=== PATIENT | female | born 1955 | race Caucasian/White ===

== ENCOUNTER → 2017-02-16 | Day surgery (SDC) | payer OTHER ==
[~2017-02-16] MED LIST: BENICAR HCT 40-1 TA2 PO; CORDARONE200 M1 PO; COUMADIN4 MG; DILTIAZEM ER240 M2 PO; LISINOPRIL20 MG PO; MELATONIN3 MG PO; MULTIVITAMINS1 EAC3 PO; WARFARIN SODIUM2 MG PO
--- NOTE | ~2017-02-16 | OR ---
Unit #: [id number] #: [id number] Patient: FLIP RINALDI [id number] [address] [address] [id number] O MR#: [id number] NAME: FLIP RINALDI ROOM: Date of Procedure: 02/16/2017 Admission Date: 02/16/2017 Surgeon: Po Garcia III, M.D. : 1955 Attending Physician: Po Garcia III, M.D. Referring Physician: Po Garcia III, M.D. Primary Care Physician: Barry Wilson M.D. OPERATIVE REPORT PREOPERATIVE DIAGNOSIS History of polyps. POSTOPERATIVE DIAGNOSIS Sigmoid diverticulosis. PROCEDURE PERFORMED Colonoscopy to cecum. ANESTHESIA MAC. SPECIMENS None. COMPLICATIONS None apparent. INDICATIONS FOR PROCEDURE This is a 61-year-old lady, who presents with history of colon polyps. She had one that was 1.2 cm at approximately 25 cm from the rectum. She is here today for surveillance. DESCRIPTION OF PROCEDURE After consent was obtained, the patient was brought to the endoscopy suite, placed in the left lateral decubitus position. I performed a rectal exam and did not feel any masses. The scope was placed within the rectal vault. Air was insufflated. I navigated the scope all the way to the cecum without any difficulty. She did have a slightly tortuous sigmoid colon and some fairly moderate sigmoid diverticular disease. There were no polyps or masses and no other mucosal irregularities. The scope was retroflexed within the rectum. No other masses were seen. The scope was then carefully withdrawn. The patient tolerated the procedure without any problems and returned to the recovery room in stable condition. At this point, she can go back to a colonoscopy at 10 years. Dictated by... Po Garcia III, M.D. VCL/modl Unit #: [id number] #: [id number] Patient: FLIP RINALDI TD: 02/17/2017 06:58 JOB #: [id number] CC: Barry Wilson M.D. OPERATIVE REPORT Page 1 of 1 X Po Garcia III, MD PROCEDURE OPERATIVE NOTE
== END | disposition home or self-care (01) ==
LOC: COPS 10:45
DX: Z12.11 Encounter for screening for malignant neoplasm of colon (principal); Z86.010 Personal history of colon polyps; Z80.0 Family history of malignant neoplasm of digestive organs; K57.30 Diverticulosis of large intestine without perforation or abscess without bleeding; I10 Essential (primary) hypertension
CPT/HCPCS: J2250